=== PATIENT | male | born 1990 | race Two or more races ===

== ENCOUNTER 2023-04-16 19:59 | Emergency (ER) | payer OTHER, SELFPAY ==
[2023-04-16] VITALS (7 sets, daily range): BP systolic 132–152; BP diastolic 94–104; PULSE 80–89; RESP 16–21; TEMP 36.3; O2SAT 93–95; BMI 25.8
--- NOTE | 2023-04-16 20:09 | CT_ITS ---
The [address] [address] Patient Name: LINDSAY HERNANDEZ MRN: [id number] date: 1990 Sex: M Assigned Patient Location: ER Current Patient Location: ER Accession/Order Number: [id number] Exam Date: 04/16/2023 20:39 Report Date: 04/16/2023 20:58 At the request of: ESTER AMEZQUITA Procedure: CT head/brain wo con EXAM: CT head/brain wo con HISTORY: altered mental status COMPARISON: None. TECHNIQUE: Multi slice thin computed tomograms of the head were obtained, with sagittal and coronal reconstructions. Radiation reduction techniques and algorithms were utilized during the study. FINDINGS: The ventricles are not enlarged, the lateral ventricles are slightly asymmetric but within normal variation, and the third ventricles in the midline. The sylvian fissures and cortical sulci are unremarkable there is no evidence of an intracranial hemorrhage, mass lesion or apparent acute infarct. The cerebellum and visualized brainstem are intact. There is some mucosal thickening in the ethmoid sinuses, more so on the right, and the paranasal sinuses are otherwise relatively clear. The middle ears are aerated. The mastoid sinuses are clear. There is no apparent acute skull fracture. CT/CT head/brain wo con IMPRESSION: There is no evidence of an intracranial hemorrhage, mass lesion or apparent acute infarct. Some mucosal thickening is seen in the ethmoid sinuses, and the paranasal sinuses are otherwise clear. There is no apparent acute skull fracture. Direct comparison with a previous study may be helpful in determining the chronicity of these findings. Electronically authenticated by: MARII OCAMPO Date: 04/16/2023 20:58
--- NOTE | 2023-04-16 20:10 | ECG_ITS ---
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
--- NOTE | 2023-04-16 20:10 | ED.ALCOHOL1 ---
HPI - Alcohol General Chief Complaint: Alcohol Stated Complaint: vomiting Time Seen by Provider: 04/16/23 20:04 Source: patient Mode of arrival: ambulance Limitations: altered mental status History of Present Illness HPI narrative: patient history is limited as he is intoxicated. States he got kicked out of [facility] today. Went to [facility] to get help for his drug abuse and is now sent here for clearance. he arrives intoxicated . limited history. Denies any injury. Speech slurred but he is awake and talking. states he uses Adderall complaint: Reports alcohol intoxication Related Data Home Medications Medication Instructions Recorded Confirmed No Known Home Medications 04/16/23 04/16/23 Allergies Allergy/AdvReac Type Severity Reaction Status Date / Time No Known Drug Allergies Allergy Verified 04/16/23 20:04 Review of Systems ROS Status of ROS unobtainable due to mental status (intoxicated) PFSH [facility] Social History Smoking status: Never smoker Exam Constitutional Vital Signs, click to edit/add: Last Vital Signs Temp 97.4 F L 04/16/23 20:00 Pulse 88 04/17/23 01:06 Resp 16 04/17/23 01:06 BP 119/83 04/17/23 04:04 Pulse Ox 95 04/17/23 04:04 O2 Del Method Room Air 04/17/23 01:06 Common normals: no apparent distress (intoxicated) Eye Common normals: EOMs intact bilaterally and conjunctivae normal Neck & C-Spine Common normals: full ROM Respiratory Common normals: normal respiratory effort, no retractions, no use of accessory muscles and clear to auscultation bilaterally Cardio Common normals: regular rate, regular rhythm, S1 normal heart sound and S2 normal heart sound GI Common normals: Normal to inspection, nondistended, normoactive bowel sounds present, soft to palpation and non-tender Extremity Common normals: normal to inspection and full ROM Neuro Common normals: moves all extremities, no focal motor deficits and no sensory deficits noted Psych Appearance: other (intoxicated) Course Vital Signs Vital signs: Vital Signs Temperature 97.4 F L 04/16/23 20:00 Pulse Rate 87 04/16/23 20:00 Respiratory Rate 16 04/16/23 20:00 Blood Pressure 152/104 H 04/16/23 20:00 Pulse Oximetry 94 L 04/16/23 20:00 Temperature 97.4 F L 04/16/23 20:00 Pulse Rate 88 04/17/23 01:06 Respiratory Rate 16 04/17/23 01:06 Blood Pressure 119/83 04/17/23 04:04 Pulse Oximetry 95 04/17/23 04:04 Oxygen Delivery Method Room Air 04/17/23 01:06 MDM - Alcohol MDM Narrative Medical decision making narrative: patient presents with polysubstance abuse. alcohol level over 400 on arrival .Patient monitored in the ED and repeat alcohol 160s. Patient has remained stable. urine drug screen also remarkable for Benzos, amphetamines and THC. Patient is discharged to [facility] facility to assist him with his substance abuse Lab Data Labs: Lab Results 04/16/23 04/16/23 04/16/23 Range/Units 20:19 22:30 22:33 WBC 5.9 (4.0-11.0) 10^3/uL RBC 6.07 (4.70-6.10) 10^6/uL Hgb 17.9 (14.0-18.0) g/dL Hct 52.5 (42.0-54.0) % MCV 86.5 (80.0-94.0) fL MCH 29.5 (25.9-34.0) pg MCHC 34.1 (29.9-35.2) g/dL RDW 15.4 H (11.0-15.0) % Plt Count 229 (150-450) 10^3/uL MPV 8.9 L (9.5-13.5) fL Neut % (Auto) 58.3 (43.0-75.0) % Lymph % (Auto) 31.1 (20.5-60.0) % [place] % (Auto) 6.3 (1.7-12.0) % Eos % (Auto) 3.4 (0.9-7.0) % Baso % (Auto) 0.7 (0.2-2.0) % Neut # (Auto) 3.4 (1.4-6.5) 10^3/uL Lymph # (Auto) 1.8 (1.2-3.8) 10^3/uL [place] # (Auto) 0.4 (0.3-0.8) 10^3/uL Eos # (Auto) 0.2 (0.0-0.7) 10^3/uL Baso # (Auto) 0.0 (0.0-0.1) 10^3/uL Abs Immat Gran (auto) 0.01 (0.00-0.03) 10^3/uL Imm/Tot Granulo (auto) 0.2 (0.0-0.5) % Sodium 146 H (136-145) mmol/L Potassium 3.9 (3.5-5.1) mmol/L Chloride 105 (98-107) mmol/L Carbon Dioxide 28.1 (21.0-32.0) mmol/L Anion Gap 16.8 BUN 7.0 (7.0-18.0) mg/dL Creatinine 1.01 (0.70-1.30) mg/dL Est GFR ( Amer) >60 (>=60) Est GFR (Non-Af Amer) >60 (>=60) BUN/Creatinine Ratio 6.9 Glucose 103 (74-106) mg/dL Calcium 8.7 (8.5-10.1) mg/dL Magnesium 2.3 (1.8-2.4) mg/dL Total Bilirubin 0.3 (0.2-1.0) mg/dL AST 63 H (15-37) U/L ALT 84 H (16-63) U/L Alkaline Phosphatase 99 (46-116) U/L Total Protein 8.0 (6.4-8.2) g/dL Albumin 4.1 (3.4-5.0) g/dL Globulin 3.9 g/dL Albumin/Globulin Ratio 1.1 Urine Opiates Screen Negative (NEGATIVE) Ur Buprenorphine Scrn Negative (NEGATIVE) Ur Oxycodone Screen Negative (NEGATIVE) Urine Methadone Screen Negative (NEGATIVE) Ur Propoxyphene Screen Negative (NEGATIVE) Ur Barbiturates Screen Negative (NEGATIVE) U Tricyclic Antidepress Negative (NEGATIVE) Ur Phencyclidine Scrn Negative (NEGATIVE) Ur Amphetamines Screen Positive A (NEGATIVE) U Methamphetamines Scrn Negative (NEGATIVE) U Benzodiazepines Scrn Positive A (NEGATIVE) Urine Cocaine Screen Negative (NEGATIVE) U Cannabinoids Screen Positive A (NEGATIVE) Ethanol Quant 408 342 mg/dL 04/17/23 04/17/23 Range/Units 00:57 04:03 WBC (4.0-11.0) 10^3/uL RBC (4.70-6.10) 10^6/uL Hgb (14.0-18.0) g/dL Hct (42.0-54.0) % MCV (80.0-94.0) fL MCH (25.9-34.0) pg MCHC (29.9-35.2) g/dL RDW (11.0-15.0) % Plt Count (150-450) 10^3/uL MPV (9.5-13.5) fL Neut % (Auto) (43.0-75.0) % Lymph % (Auto) (20.5-60.0) % [place] % (Auto) (1.7-12.0) % Eos % (Auto) (0.9-7.0) % Baso % (Auto) (0.2-2.0) % Neut # (Auto) (1.4-6.5) 10^3/uL Lymph # (Auto) (1.2-3.8) 10^3/uL [place] # (Auto) (0.3-0.8) 10^3/uL Eos # (Auto) (0.0-0.7) 10^3/uL Baso # (Auto) (0.0-0.1) 10^3/uL Abs Immat Gran (auto) (0.00-0.03) 10^3/uL Imm/Tot Granulo (auto) (0.0-0.5) % Sodium (136-145) mmol/L Potassium (3.5-5.1) mmol/L Chloride (98-107) mmol/L Carbon Dioxide (21.0-32.0) mmol/L Anion Gap BUN (7.0-18.0) mg/dL Creatinine (0.70-1.30) mg/dL Est GFR ( Amer) (>=60) Est GFR (Non-Af Amer) (>=60) BUN/Creatinine Ratio Glucose (74-106) mg/dL Calcium (8.5-10.1) mg/dL Magnesium (1.8-2.4) mg/dL Total Bilirubin (0.2-1.0) mg/dL AST (15-37) U/L ALT (16-63) U/L Alkaline Phosphatase (46-116) U/L Total Protein (6.4-8.2) g/dL Albumin (3.4-5.0) g/dL Globulin g/dL Albumin/Globulin Ratio Urine Opiates Screen (NEGATIVE) Ur Buprenorphine Scrn (NEGATIVE) Ur Oxycodone Screen (NEGATIVE) Urine Methadone Screen (NEGATIVE) Ur Propoxyphene Screen (NEGATIVE) Ur Barbiturates Screen (NEGATIVE) U Tricyclic Antidepress (NEGATIVE) Ur Phencyclidine Scrn (NEGATIVE) Ur Amphetamines Screen (NEGATIVE) U Methamphetamines Scrn (NEGATIVE) U Benzodiazepines Scrn (NEGATIVE) Urine Cocaine Screen (NEGATIVE) U Cannabinoids Screen (NEGATIVE) Ethanol Quant 243 162 mg/dL Discharge Plan Discharge Chief Complaint: Alcohol Clinical Impression: Alcoholic intoxication, Polysubstance abuse Patient Disposition: Home, Self-Care Prescriptions / Home Meds: No Action No Known Home Medications Instructions: Alcohol Intoxication (DC), Polysubstance Use Disorder (ED) Stand Alone Forms: Portal Instructions Referrals: Physician,Non-Staff, MD [Primary Care Provider] - 1 week
[2023-04-16] MEDS: 0.9 % SODIUM CHLORIDE 1,000 ML 999 ML IV (20:11)
[2023-04-16 20:32] LABS: Basophils Percent Auto 0.7 % (0.2-2.0); Eosinophils Absolute Auto 0.2 10^3/uL (0.0-0.7); Eosinophils Percent Auto 3.4 % (0.9-7.0); Hematocrit 52.5 % (42.0-54.0); Hemoglobin 17.9 g/dL (14.0-18.0); Immature Granulocytes Abs Auto 0.01 10^3/uL (0.00-0.03); Immature Granulocytes Pct Auto 0.2 % (0.0-0.5); Lymphocytes Absolute Auto 1.8 10^3/uL (1.2-3.8); Lymphocytes Percent Auto 31.1 % (20.5-60.0); Mean Corpuscular HGB Conc 34.1 g/dL (29.9-35.2); Mean Corpuscular Hemoglobin 29.5 pg (25.9-34.0); Mean Corpuscular Volume 86.5 fL (80.0-94.0); Mean Platelet Volume 8.9 fL (9.5-13.5); Monocytes Absolute Auto 0.4 10^3/uL (0.3-0.8); Monocytes Percent Auto 6.3 % (1.7-12.0); Neutrophils Absolute Auto 3.4 10^3/uL (1.4-6.5); Neutrophils Percent Auto 58.3 % (43.0-75.0); Platelet Count 229 10^3/uL (150-450); Red Blood Count 6.07 10^6/uL (4.70-6.10); Red Cell Distribution Width 15.4 % (11.0-15.0); White Blood Count 5.9 10^3/uL (4.0-11.0)
[2023-04-16 20:52] LABS: Alanine Aminotransferase 84 U/L (16-63); Albumin Globulin Ratio 1.1; Albumin Level 4.1 g/dL (3.4-5.0); Alkaline Phosphatase 99 U/L (46-116); Anion Gap 16.8; Aspartate Amino Transferase 63 U/L (15-37); BUN Creatinine Ratio 6.9; Bilirubin Total 0.3 mg/dL (0.2-1.0); Calcium 8.7 mg/dL (8.5-10.1); Carbon Dioxide 28.1 mmol/L (21.0-32.0); Chloride 105 mmol/L (98-107); Estimated GFR (African America >60 (>=60); Estimated GFR (Non-African Ame >60 (>=60); Globulin 3.9 g/dL; Glucose 103 mg/dL (74-106); Potassium 3.9 mmol/L (3.5-5.1); Sodium 146 mmol/L (136-145)
[2023-04-16 20:53] LABS: Magnesium 2.3 mg/dL (1.8-2.4)
[2023-04-16 20:54] LABS: Ethanol 408 mg/dL
[2023-04-16] MEDS: LORAZEPAM 2 MG/ML 1 ML VIAL 1 MG IV (22:18)
[2023-04-16] MEDS: 0.9 % SODIUM CHLORIDE 1,000 ML 1000 ML IV ×2 (22:41→23:37)
[2023-04-16 22:56] LABS: Cannabinoid Screen Urine POSITIVE (NEGATIVE)
[2023-04-16 22:57] LABS: Amphetamine Screen Urine POSITIVE (NEGATIVE); Barbiturates Screen Urine NEGATIVE (NEGATIVE); Benzodiazepines Screen Urine POSITIVE (NEGATIVE); Buprenorphine Screen Urine NEGATIVE (NEGATIVE); Cocaine Screen Urine NEGATIVE (NEGATIVE); Methadone Screen Urine NEGATIVE (NEGATIVE); Methamphetamines Screen Urine NEGATIVE (NEGATIVE); Opiate Screen Urine NEGATIVE (NEGATIVE); Oxycodone Screen Urine NEGATIVE (NEGATIVE); Phencyclidine Screen Urine NEGATIVE (NEGATIVE); Tricyclic Antidepressant Urine NEGATIVE (NEGATIVE)
[2023-04-16 23:04] LABS: Ethanol 342 mg/dL
[2023-04-16] MEDS: NICOTINE 21 MG PATCH.TD24 TD (23:38)
[2023-04-17 01:03] VITALS: BP 160/103; O2SAT 95
[2023-04-17 01:06] VITALS: BP 130/96; PULSE 88; RESP 16; O2SAT 97
[2023-04-17 01:17] LABS: Ethanol 243 mg/dL
[2023-04-17 04:04] VITALS: BP 119/83; O2SAT 95
[2023-04-17 04:18] LABS: Ethanol 162 mg/dL
== END 2023-04-17 05:34 | disposition home or self-care (01) ==
PROVIDERS: Emergency Provider Internal Medicine
DX: F10.129 Alcohol abuse with intoxication, unspecified (principal); F19.10 Other psychoactive substance abuse, uncomplicated; Y90.8 Blood alcohol level of 240 mg/100 ml or more
CPT/HCPCS: 36415; 70450; 80053; 80307; 80320; 83735; 85025; 93005; 96374; 99285

== ENCOUNTER 2023-07-08 14:31 | Outpatient (OUT) | payer OTHER, SELFPAY ==
--- NOTE | 2023-07-08 14:43 | XR_ITS ---
The [address] [address] Patient Name: LINDSAY HERNANDEZ MRN: [id number] date: 1990 Sex: M Assigned Patient Location: [facility] Current Patient Location: Accession/Order Number: [id number] Exam Date: 07/08/2023 14:48 Report Date: 07/09/2023 01:00 At the request of: NON-STAFF PHYSICIAN Procedure: XR ribs BI min 4V w CXR1V EXAMINATION: XR ribs BI min 4V w CXR1V HISTORY: Rib Pain bilaterally COMPARISON: No relevant comparison available. FINDINGS: LUNGS: No significant pulmonary parenchymal abnormalities. PLEURA: No pneumothorax, effusion, or pleural thickening. MEDIASTINUM: No visible mass or adenopathy. CARDIAC: No cardiomegaly or cardiac silhouette abnormality. RIBS: Old healed/healing fractures of the right third, fourth, seventh ribs. OTHER: Negative. XR/XR ribs BI min 4V w CXR1V IMPRESSION: 1. Several old/healing right rib fractures. The seventh rib appears subacute. No convincing acute fracture. Consider CT follow-up if clinically indicated. 2. No appreciable left rib fractures. 3. No acute cardiopulmonary process. Electronically authenticated by: AMARILIS CHACON Date: 07/09/2023 01:00
== END 2023-07-08 14:32 | disposition home or self-care (01) ==
LOC: RAD 14:35
DX: R07.81 Pleurodynia (principal); S22.41XD Multiple fractures of ribs, right side, subsequent encounter for fracture with routine healing
CPT/HCPCS: 71111